=== PATIENT | male | born 1955 | race Caucasian/White ===

== ENCOUNTER 2018-09-16 07:40 | Day surgery (SDC) ==
[2018-09-16] MEDS: TETRACAINE 0.5% UNIT-DOSE OP PRN ×3 (07:50→08:44)
[2018-09-16] MEDS: BETADINE OPTH PREP OP PRN ×2 (07:50→08:40)
[2018-09-16] MEDS: CYCLOGYL 2% OPTH OP PRN ×3 (07:51→08:01)
[2018-09-16] MEDS ORDERED: DEX-MOXI-KETOR OPTH INJ 1/0.5/0.4 MG/ML IO ONE (07:58)
[2018-09-16] MEDS ORDERED: LIDOCAINE 1%/PHENYLEPHRINE 1.5% BSS (SURGERY) INTRAOCULA ONE (07:58)
[2018-09-16] MEDS ORDERED: LIDOCAINE 1% 20 ML MDV ID STA (07:58)
[2018-09-16] MEDS ORDERED: BSS WITH EPINEPHRINE OP ONE (07:58)
[2018-09-16] MEDS ORDERED: ZOFRAN 4 MG/2 ML IVP ONE (07:58)
[2018-09-16] MEDS ORDERED: BRIMONIDINE TARTRATE 0.2% OPTH SOL OP PRN (07:58)
[2018-09-16 08:02] VITALS: TEMP 97.5
[2018-09-16] MEDS ORDERED: SUBLIMAZE ONE (08:30)
[2018-09-16] MEDS ORDERED: ZOFRAN 4 MG/2 ML ONE (08:30)
[2018-09-16] MEDS ORDERED: VERSED ONE (08:30)
[2018-09-21 14:28] VITALS: BP 127/79
== END 2018-09-16 09:30 | disposition home or self-care (01) ==
LOC: SURG 07:40
PROVIDERS: ATTEND Ophthalmology
DX: H25.11 Age-related nuclear cataract, right eye (principal)

== ENCOUNTER 2018-10-14 08:37 | Day surgery (SDC) ==
[2018-10-14] MEDS: BETADINE OPTH PREP OP PRN ×2 (09:23→10:10)
[2018-10-14] MEDS: TETRACAINE 0.5% UNIT-DOSE OP PRN ×2 (09:23→10:01)
[2018-10-14] MEDS: CYCLOGYL 2% OPTH OP PRN ×3 (09:24→09:34)
[2018-10-14] MEDS ORDERED: ZOFRAN 4 MG/2 ML IVP ONE (09:32)
[2018-10-14] MEDS ORDERED: LIDOCAINE 1% 20 ML MDV ID STA (09:32)
[2018-10-14] MEDS ORDERED: DEX-MOXI-KETOR OPTH INJ 1/0.5/0.4 MG/ML IO ONE (09:32)
[2018-10-14] MEDS ORDERED: BSS WITH EPINEPHRINE OP ONE (09:32)
[2018-10-14] MEDS ORDERED: LIDOCAINE 1%/PHENYLEPHRINE 1.5% BSS (SURGERY) INTRAOCULA ONE (09:32)
[2018-10-14] MEDS ORDERED: SUBLIMAZE ONE (10:15)
[2018-10-14] MEDS ORDERED: DIPRIVAN 20 ML VIAL IVP ONE (10:15)
[2018-10-14] MEDS ORDERED: VERSED ONE (10:15)
[2018-10-14 12:51] VITALS: TEMP 98.2
[2018-10-20 12:44] VITALS: BP 114/63
== END 2018-10-14 11:10 | disposition home or self-care (01) ==
LOC: SURG 08:37
PROVIDERS: ATTEND Ophthalmology
DX: H26.9 Unspecified cataract (principal)